=== PATIENT | female | born 1975 | race Two or more races ===

== ENCOUNTER 2018-06-26 18:48 | Emergency (ER) | payer SELFPAY ==
--- NOTE | 2018-06-26 18:58 | EDPHY ---
H & P Stated Complaint: URI sxs x 2-3 days - Personal History LMP (Females 10-55): Irregular Current Tetanus Diphtheria and Acellular Pertussis (TDAP): Unsure - Medical/Surgical History Hx Asthma: Yes Other PMH: GERD. obesity - Social History Smoking Status: Current every day smoker Time Seen by Provider: 06/26/18 18:56 HPI/ROS: CHIEF COMPLAINT: URI symptoms HISTORY OF PRESENT ILLNESS: 42-year-old female arrives via private vehicle complaining of URI symptoms for the past 3 days, intermittently productive cough , sinus congestion, sore throat, chest pain with coughing. No dyspnea. No back pain. No nausea or vomiting. PRIMARY CARE PROVIDER: None REVIEW OF SYSTEMS: 10 systems reviewed and negative with the exception of the elements mentioned in the history of present illness PAST MEDICAL & SURGICAL HISTORY: Home oxygen at night. Asthma. SOCIAL HISTORY: Half pack per day tobacco PHYSICAL EXAM (Prior to examination, patient consented to physical exam, hands were washed and my usual and customary physical exam procedures followed) 1) GENERAL: Well-developed, well-nourished, alert and oriented. Appears nontoxic. 2) HEAD: Normocephalic, atraumatic 3) HEENT: Pupils equal, round, reactive to light bilaterally. Sclera anicteric. Nasopharynx, oropharynx, clear, no lesions. No tonsillar enlargement or exudate. Moist mucous membranes. Ears bilaterally with normal tympanic membranes. 4) NECK: Full range of motion, no meningeal signs. 5) LUNGS: Clear auscultation bilaterally, no wheezes, no rhonchi, no retractions. 6) HEART: Regular rate and rhythm, no murmur, no heave, no gallop. 7) ABDOMEN: No guarding, no rebound, no focal tenderness, negative McBurney's, negative Baxter's, negative Rovsing's, negative peritoneal sign, 8) MUSCULOSKELETAL: Moving all extremities, no focal areas of tenderness, no obvious trauma. No peripheral edema or discoloration. 9) BACK: No CVA tenderness, no midline vertebral tenderness, no fluctuance, no step-off, no obvious trauma, no visual or palpable abnormality. 10) SKIN: No rash, no petechiae. 11) Psychiatric: Patient is oriented X 3, there is no agitation. DIFFERENTIAL DIAGNOSIS: In no particular order including but not limited to bronchitis, pneumonia, pneumothorax, pulmonary embolus (Jhoan Swenson) Constitutional: Initial Vital Signs Temperature (C) 37.2 C 06/26/18 18:48 Heart Rate 99 06/26/18 18:48 Respiratory Rate 18 06/26/18 18:48 Blood Pressure 158/114 H 06/26/18 18:48 O2 Sat (%) 92 06/26/18 18:48 O2 Delivery Mode Room Air Allergies/Adverse Reactions: codeine Allergy (Intermediate, Verified 06/26/18 18:53) Hives ibuprofen Allergy (Mild, Verified 06/26/18 18:53) GI upset Home Medications: Medication Instructions Recorded Albuterol [Proventil Inhaler HFA 1 - 2 puffs IH Q4H 06/26/18 (*)] Albuterol [Proventil Inhaler HFA 1 - 2 puffs IH Q4PRN PRN #1 mdi 06/26/18 (*)] Azithromycin [Zithromax] 500 mg PO DAILY #1 tablet 06/26/18 Benzonatate [Tessalon Pearles (RX)] 200 mg PO TID PRN #15 cap 06/26/18 Ranitidine HCl [Zantac 75] 75 mg PO 06/26/18 Medical Decision Making - Diagnostics Imaging Results: Images reviewed myself (Jhoan Swenson) ED Course/Re-evaluation: Re-evaluation with serial exams, maintain normal saturation. I do not think that hospitalization indicated. Recommend antibiotics, antitussive, albuterol meter dose inhaler. Recommend smoking cessation. Also noted to have hypertension. Doubt hypertensive crisis. Recommend keeping a blood pressure diary and recommend establishing primary care and given these resources. She feels comfortable being discharged. My usual and customary discharge precautions and instructions provided. All questions and concerns addressed by myself I saw this patient independently based on established practice protocols. Care of patient under supervision of secondary supervising physician Dr Ivis Martínez. (Jhoan Swenson) Other Provider: The patient was evaluated and managed by the Physician Fur Cleaner. My co- signature indicates that I have reviewed this chart and I agree with the findings and plan of care as documented. I am the secondary supervising physician. (Ivis Martínez) - Data Points Medications Given: Discontinued Medications Albuterol Sulfate (Proventil Inh Prepack) 1 mdi TAKEHOME EDNOW ONE Stop: 06/26/18 19:54 Last Admin: 06/26/18 20:03 Dose: 1 mdi Azithromycin (Zithromax) 500 mg PO EDNOW ONE PRN Reason: Protocol Stop: 06/26/18 19:54 Last Admin: 06/26/18 20:02 Dose: 500 mg Benzonatate (Tessalon Pearles) 200 mg PO EDNOW ONE Stop: 06/26/18 19:53 Last Admin: 06/26/18 20:02 Dose: 200 mg Departure - Departure Disposition: Home, Routine, Self-Care Clinical Impression: Upper respiratory infection Condition: Good Instructions: Albuterol (By mouth), Upper Respiratory Infection (ED) Additional Instructions: Recommend you keep a diary of her blood pressure. You need to have this monitored and re-evaluated. Recommend you establish primary care provider. Referrals: [facility],. [Clinic] - As per Instructions Prescriptions: Albuterol [Proventil Inhaler HFA (*)] 1 - 2 puffs IH Q4PRN PRN #1 mdi PRN Reason: Cough, Moderate Azithromycin [Zithromax] 500 mg PO DAILY #1 tablet Benzonatate [Tessalon Pearles (RX)] 200 mg PO TID PRN #15 cap PRN Reason: Cough, Moderate
[2018-06-26] MEDS ORDERED: BENZONATATE 100 MG CAP PO ONE (19:52)
[2018-06-26] MEDS ORDERED: ALBUTEROL INH PREPACK MDI TAKEHOME ONE (19:53)
[2018-06-26] MEDS ORDERED: AZITHROMYCIN 250 MG TAB PO ONE ×2 (19:53→20:08)
[2018-06-26 20:15] VITALS: BP 173/112
== END 2018-06-26 20:19 | disposition home or self-care (01) ==
DX: J06.9 Acute upper respiratory infection, unspecified (principal)

== ENCOUNTER 2018-12-25 16:51 | Emergency (ER) | payer SELFPAY | END 2018-12-25 18:44 | disposition home or self-care (01) | LOC: CED 16:51 ==